=== PATIENT | male | born 1965 | race Caucasian/White ===

== ENCOUNTER 2019-02-16 09:03 | Emergency (ER) | payer BC, OTHER ==
[2019-02-16 09:19] VITALS: BP 126/83; PULSE 95; TEMP 98.7; BMI 32.5
--- NOTE | 2019-02-16 09:30 | PDOC ---
History of Present Illness - General Chief Complaint: Abscess Boil Stated Complaint: WOUND CHECK Time Seen by Provider: 02/16/19 09:19 - History of Present Illness Initial Comments: 02/16/19 11:27 Chief complaint: Abscess History of present illness: I&D of abscess on upper back several days ago, persistent purulent drainage. On Bactrim pending culture results. Prior zoster treated with Valtrex Review of systems: No fever/chills, or other systemic sign of widespread infection Medical history: Type 2 diabetes on oral medication, controlled Social/family history reviewed and noncontributory Physical exam: Alert and oriented well-developed well-nourished no acute distress cooperative Afebrile, vital signs normal Site of abscess on upper back with persistent purulent drainage. Wound is open and draining well. Skin is flat with no fluctuance or other sign of recurrent abscess. Surrounding mild erythema but no significant tenderness to palpation. Impression: Draining abscess, resolving Plan: Results of culture were obtained from urgent care center. Staff aureus was grown which is sensitive to all antibiotics. Cephalexin may penetrate skin and soft tissue better than Bactrim, so antibiotic changed to cephalexin 500 4 times a day with close observation and follow-up by primary physician. Warning signs of spreading infection were discussed with the patient and he is instructed to return to the emergency room if such symptoms develop. Otherwise fully ambulatory and in no pain or other distress and discharge with his to follow-up as directed Past History - Past Medical History Allergies/Adverse Reactions: Allergies Allergy/AdvReac Type Severity Reaction Status Date / Time No Known Allergies Allergy Verified 02/16/19 09:10 Home Medications: Ambulatory Orders Aspirin Coated [Ecotrin -] 81 mg PO HS 02/16/19 Atorvastatin Ca PO HS 02/16/19 Cephalexin Monohydrate [Keflex] 500 mg PO Q6H #30 capsule 02/16/19 Metformin HCl [Glucophage] 1,000 mg PO BID 02/16/19 COPD: No Diabetes: Yes (TYPE II) - Suicide/Smoking/Psychosocial Hx Smoking History: Never smoked Hx Alcohol Use: Yes Drug/Substance Use Hx: No *Physical Exam - Vital Signs Last Vital Signs Temp Pulse Resp BP Pulse Ox 98.7 F 95 H 16 126/83 100 02/16/19 09:04 02/16/19 09:04 02/16/19 09:04 02/16/19 09:04 02/16/19 09:04 *DC/Admit/Observation/Transfer Diagnosis at time of Disposition: Cellulitis Qualifiers: Site of cellulitis: trunk Site of cellulitis of trunk: back Qualified Code(s): L03.312 - Cellulitis of back [any part except buttock] - Discharge Dispostion Disposition: HOME Condition at time of disposition: Stable Decision to Admit order: No - Prescriptions Prescriptions: Cephalexin Monohydrate [Keflex] 500 mg PO Q6H #30 capsule - Referrals Referrals: Marychuy Farfan MD [Primary Care Provider] - 3 days - Patient Instructions Printed Discharge Instructions: DI for Cellulitis -- Adult Additional Instructions: Stop taking the present antibiotic. Begin new antibiotic as prescribed. Return to ER if symptoms worsen, especially if there are fever/chills, body aches, or other signs of widespread involvement of infection. Otherwise follow- up primary physician as directed. - Post Discharge Activity
== END 2019-02-16 10:15 | disposition home or self-care (01) ==
LOC: FER 09:03
DX: Z48.01 Encounter for change or removal of surgical wound dressing (principal); L03.312 Cellulitis of back [any part except buttock and flank]
CPT/HCPCS: 87070; 87186; 87205; 99282-25

== ENCOUNTER 2020-06-08 22:03 | Emergency (ER) | payer BC ==
[2020-06-08 22:11] VITALS: TEMP 98.9; BMI 27.1
--- NOTE | 2020-06-08 22:57 | PDOC ---
History of Present Illness - General Chief Complaint: Suicidal Stated Complaint: INTOX Time Seen by Provider: 06/08/20 22:25 - History of Present Illness Initial Comments: 06/08/20 22:56 54yo male with history of diabetes and alcohol abuse presents with acute alcohol intoxication and suicidal ideation, as well as a fall. Patient states he drank a lot, and fell forward. He hit his head on a glass table and cut his nose. Denies LOC or neck pain. States he wants to kill himself. No plan, no gun, no past attempts, no psych history. As per , he frequently says he wants to kill himself when drunk. PMH/PSH: as above Home Medications Medication Instructions Recorded Aspirin Coated [Ecotrin -] 81 mg PO HS 02/16/19 Atorvastatin Ca PO HS 02/16/19 Metformin HCl [Glucophage] 1,000 mg PO BID 02/16/19 Allergies Allergy/AdvReac Type Severity Reaction Status Date / Time No Known Allergies Allergy Verified 02/16/19 09:10 ROS GENERAL/CONSTITUTIONAL: No fever or chills. No weakness. HEAD, EYES, EARS, NOSE AND THROAT: No change in vision. No ear pain or discharge. No sore throat. CARDIOVASCULAR: No chest pain or shortness of breath RESPIRATORY: No cough, wheezing, or hemoptysis. GASTROINTESTINAL: No nausea, vomiting, diarrhea or constipation. GENITOURINARY: No dysuria, frequency, or change in urination. MUSCULOSKELETAL: No joint or muscle swelling or pain. No neck or back pain. SKIN: No rash NEUROLOGIC: No headache, vertigo, loss of consciousness, or change in strength/sensation. ENDOCRINE: No increased thirst. No abnormal weight change HEMATOLOGIC/LYMPHATIC: No anemia, easy bleeding, or history of blood clots. ALLERGIC/IMMUNOLOGIC: No hives or skin allergy. PE GENERAL: Awake, alert, and fully oriented, intoxicated HEAD: laceration across bridge of nose EYES: PERRLA, EOMI, sclera anicteric, conjunctiva clear ENT: Auricles normal inspection, hearing grossly normal, nares patent, or opharynx clear without exudates. Moist mucosa NECK: Normal ROM, supple, no lymphadenopathy, JVD, or masses LUNGS: No distress, speaks full sentences, clear to auscultation bilaterally HEART: Regular rate and rhythm, normal S1 and S2, no murmurs, rubs or gallops, peripheral pulses normal and equal bilaterally. ABDOMEN: Soft, nontender, normoactive bowel sounds. No guarding, no rebound. No masses EXTREMITIES : Normal inspection, Normal range of motion, no edema. No clubbing or cyanosis. NEUROLOGICAL: Normal speech, no focal sensorimotor deficits SKIN: Warm, Dry, normal turgor, no rashes or lesions noted Vital Signs (72 hours) 06/08/20 06/09/20 22:04 04:04 Temperature 98.9 F Pulse Rate 88 Pulse Rate [ 105 H Left Radial] Respiratory 20 18 Rate Blood Pressure 151/84 Blood Pressure 146/83 [Left Arm] O2 Sat by Pulse 100 98 Oximetry (%) MDM: 54yo male with history of diabetes and alcohol abuse presents with acute alcohol intoxication and suicidal ideation, as well as a fall. Exam notable for laceration to nasal bridge. DDx includes ICH, cervical spine pathology, facial bone fracture. -CBC, CMP, UA, drug screen, tylenol/salicilates/alcohol levels -CT head, c-spine, facial bones -glue to bridge of nose laceration Labs notable for hyperglycemia to 420, ETOH level 262.3. -banana bag 06/09/20 03:38 CT head:The ventricular system is midline and nondilated. The sulcal pattern is normal for the patient's age. There is no bleed, mass, extra-axial fluid collection or mass effect. No skull fracture or skull lesion is identified. The visualized paranasal sinuses and mastoid air cells are clear. CT facial Bones: The intraorbital contents are intact. The sinuses and visualized mastoid air cells are well aerated. There is a fracture of the tip of the nasal bridge. No other fractures are identified. CT cervical spine: There is no fracture, subluxation, prevertebral soft tissue swelling. There is a large herniated disc versus focal ossification of posterior longitudinal ligament at the level of C2-3 which moderately narrows the central canal. The lung apices are clear. IMPRESSION: No acute intracranial pathology. Fracture of the tip of the nasal bridge. No fracture of the cervical spine. Moderate central canal narrowing at C2-3 secondary to a large herniated disc versus focal ossification of the posterior longitudinal ligament. 06/09/20 04:15 Patient is more sober and denies suicidal ideation and commits to safety. His [facility] cloud security architect friend will drive him home. His is home to open the door. 06/09/20 04:27 Past History - Medical History Allergies/Adverse Reactions: Allergies Allergy/AdvReac Type Severity Reaction Status Date / Time No Known Allergies Allergy Verified 02/16/19 09:10 Home Medications: Ambulatory Orders Aspirin Coated [Ecotrin -] 81 mg PO HS 02/16/19 Atorvastatin Ca PO HS 02/16/19 Cephalexin Monohydrate [Keflex] 500 mg PO Q6H #30 capsule 02/16/19 Metformin HCl [Glucophage] 1,000 mg PO BID 02/16/19 COPD: No Diabetes: Yes (TYPE II) - Psycho-Social/Smoking History Smoking History: Current every day smoker Number of Cigarettes Smoked Daily: 12 Information on smoking cessation initiated: No - Substance Abuse Hx (Audit-C & DAST Scrn) How often the patient has a drink containing alcohol: 2-4 times / month Number of drinks the patient has on a typical day: 5 or 6 How often the patient has six or more drinks on one occasion: Daily or almost daily Score: In Men: 4 or > Positive; In Women: 3 or > Positive: 8 Screen Result (Pos requires Nsg. Audit-10AR): Positive In the last yr the pt used illegal drug/Rx for NonMed reason: No Score: Yes response is considered Positive: 0 Screen Result (Positive result requires Nsg. DAST-10): Negative *Physical Exam - Vital Signs Last Vital Signs Temp Pulse Resp BP Pulse Ox 98.9 F 88 20 151/84 100 06/08/20 22:04 06/08/20 22:04 06/08/20 22:04 06/08/20 22:04 06/08/20 22:04 Procedures - Laceration/Wound Repair Nose Wound Length: to 2.5 cm Wound's Depth, Shape: superficial Wound Repaired With: Dermabond ED Treatment Course - LABORATORY CBC & Chemistry Diagram: 06/09/20 00:40 06/09/20 00:40 - RADIOLOGY Radiology Studies Ordered: Category Date Time Status CERVICAL SPINE CT W/O CONTR [CT] Stat CT Scan 06/08/20 22:[address] W/O CONTRAST [CT] Stat CT Scan 06/08/20 22:[address] WITHOUT CONTRAST [CT] Stat CT Scan 06/08/20 22:55 Ordered Discharge - Discharge Information Problems reviewed: Yes Clinical Impression/Diagnosis: Alcohol abuse, Nasal fracture Condition: Stable Disposition: HOME - Follow up/Referral - Patient Discharge Instructions Patient Printed Discharge Instructions: DI for Closed Head Injury Additional Instructions: [facility], [facility] Oral surgeon in [place], [place] Address: [address] [place] [address] [address] [place] [address] Opens 8AM - Post Discharge Activity Work/Back to School Note: My Personal Safety Plan
--- NOTE | 2020-06-09 00:47 | PDOC ---
Documentation entered by Alex Fierro SCRIBE, acting as scribe for Katerina Miller MD. Katerina Miller MD: This documentation has been prepared by the Sri villarreal Angel, SCRIBE, under my direction and personally reviewed by me in its entirety. I confirm that the documentation accurately reflects all work, treatment, procedures, and medical decision making performed by me. Attending Attestation - Resident Resident Name: Seamus Mendenhall - ED Attending Attestation I have performed the following: I have examined & evaluated the patient, The case was reviewed & discussed with the resident, I agree w/resident's findings & plan - HPI HPI: 06/09/20 00:01 The patient is a 54 year old male with a significant past medical history of type 2 diabetes on oral medication and recent cataract surgery who presents to the ED BIBA intoxicated possible fall and struck his nose. The patients called EMS. The patient states he is very depressed but denies any suicidal ideations. 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 He goes on to say he feels like he makes no money and states My life is fd up. The patient is slurring his speech and crying here in the ED. The patient has no complaints and wants to go home. - Physicial Exam PE: 06/08/20 23:49 Abdomen: huge distended belly Extremities: muscle wasting in the upper extremities No flank pain Laceration across bridge of nose and swelling Blood in his mouth but may be from nose laceration - Medical Decision Making 06/09/20 00:00 Pt is arguing with us that he wants to go home. Adamant that he is not suicidal. 06/09/20 00:44 I called and spoke to pt's and she tells me that pt is an alcoholic and that she has been trying to get him in detox. States that she kicked him out of the home and he stayed in a hotel x 3 days and pt is just getting worse. Drunk at home; today fell and was bleeding from his nose. No LOC. is willing t come pick him up if and when he decides to AMA. I explained to her that I want to get labs and CT head and facialbones. 06/09/20 00:46 Pt willing again to get face and head CT FInally agreed to have labs drawn and sent to lab 06/09/20 01:53 Pt's glucose is 420 06/09/20 03:24 Patient Name: BI HAMPTON THIS IS A PRELIMINARY REPORT DATE OF SERVICE: 2020-06-09 01:23:16 IMAGES: [id number] EXAM: CERVICAL SPINE CT W/O CONTR and FACIAL BONES CT W/O CONTRAST and HEAD CT WITHOUT CONTRAST HISTORY: Trauma COMPARISON: None. FINDINGS: CT head:The ventricular system is midline and nondilated. The sulcal pattern is normal for the patient's age. There is no bleed, mass, extra-axial fluid collection or mass effect. No skull fracture or skull lesion is identified. The visualized paranasal sinuses and mastoid air cells are clear. CT facial Bones: The intraorbital contents are intact. The sinuses and visualized mastoid air cells are well aerated. There is a fracture of the tip of the nasal bridge. No other fractures are identified. CT cervical spine: There is no fracture, subluxation, prevertebral soft tissue swelling. There is a large herniated disc versus focal ossification of posterior longitudinal ligament at the level of C2-3 which moderately narrows the central canal. The lung apices are clear. IMPRESSION: No acute intracranial pathology. Fracture of the tip of the nasal bridge. No fracture of the cervical spine. Moderate central canal narrowing at C2-3 secondary to a large herniated disc versus focal ossification of the posterior longitudinal ligament. 06/09/20 03:56 I called pt's . She is getting a family friend to pick pt up and bring him home. SHe is at home to open the door. Discharge - Discharge Information Problems reviewed: Yes Clinical Impression/Diagnosis: Alcohol abuse, Nasal fracture Condition: Stable Disposition: HOME - Admission No - Follow up/Referral - Patient Discharge Instructions Patient Printed Discharge Instructions: DI for Closed Head Injury Additional Instructions: [facility], [facility] Oral surgeon in [place], [place] Address: [address] [place] [address] #[facility], [place] [address] Opens 8AM - Post Discharge Activity Work/Back to School Note: My Personal Safety Plan
[2020-06-09 01:04] LABS: BASO % 0.3 % (0-2.0); EOS % 1.3 % (0-4.5); HEMATOCRIT 43.2 % (35.4-49); LYMPH % 23.8 % (8-40); MCH 33.5 pg (25.7-33.7); MCHC 34.7 g/dl (32.0-35.9); MEAN CELL VOLUME 96.5 fl (80-96); MEAN PLT VOLUME 8.2 fl (7.5-11.1); MONO % 4.1 % (3.8-10.2); NEUT % 70.5 % (42.8-82.8); PLATELET COUNT 133 K/MM3 (134-434); RBC 4.48 M/mm3 (4.00-5.60); RDW 13.1 % (11.9-15.9); WHITE BLOOD COUNT 5.1 K/mm3 (4.0-10.0)
[2020-06-09 01:19] LABS: INR 0.91 (0.83-1.09); PROTHROMBIN TIME (PATIENT) 10.7 SEC (9.7-13.0)
[2020-06-09 01:22] LABS: ACTIVATED PTT 33.4 SECONDS (25.2-36.5)
[2020-06-09 01:28] LABS: ALBUMIN 3.8 g/dl (3.4-5.0); BILIRUBIN,TOTAL 0.5 mg/dL (0.2-1); CALCIUM 8.9 mg/dL (8.5-10.1); CREATININE 0.8 mg/dL (0.55-1.3); POTASSIUM 3.9 mmol/L (3.5-5.1); TOT PROT 7.4 g/dl (6.4-8.2)
[2020-06-09] MEDS ORDERED: FOLIC ACID INJECTION - 1 MG, THIAMINE HCL 100 MG, MULTIVIT INJECTION ADULT 10 ML in SOD... IVPB ONE (01:56)
[2020-06-09 02:03] LABS: EPI CELLS 1 /uL (0-25.1); HYALINE CASTS 0 /uL (0-3.1); URINE APPEARANCE CLEAR; URINE BACTERIA 2 /uL (0-1359); URINE BILIRUBIN NEGATIVE (NEGATIVE); URINE COLOR YELLOW; URINE GLUCOSE (UA) 3+ (NEGATIVE); URINE KETONE 1+ (NEGATIVE); URINE LEUK ESTERASE NEGATIVE (NEGATIVE); URINE NITRITE NEGATIVE (NEGATIVE); URINE PROTEIN 1+ (NEGATIVE); URINE RBC 3 /uL (0-23.9); URINE WBC 1 /uL (0-25.8)
[2020-06-09 02:09] LABS: OPIATES, URI NEGATIVE ng/ml (CUTOFF=300); PHENCYCLIDINE,URINE NEGATIVE ng/ml (CUTOFF=25)
[2020-06-09 02:10] LABS: COCAINE, UR NEGATIVE ng/ml (CUTOFF=300); URINE BARBITURATES NEGATIVE ng/ml (CUTOFF=200); URINE BENZODIAZEPINES NEGATIVE ng/ml (CUTOFF=200)
[2020-06-09 02:15] LABS: METHADONE, UR NEGATIVE ng/ml (CUTOFF=300); URINE AMPHETAMINES NEGATIVE ng/ml (CUTOFF=500)
[2020-06-09] MEDS ORDERED: MAGNESIUM SULF 50% (8.12 MEQ/2 ML-1 GM VIAL) IVPB ONE (03:25)
[2020-06-09] MEDS ORDERED: INSULIN REGULAR HUMAN 100 UNITS/ML *VIAL IVPUSH ONE (03:25)
[2020-06-09 04:05] VITALS: BP 146/83; PULSE 105
--- NOTE | 2020-06-09 21:24 | EKG ---
Test Reason : Blood Pressure : / mmHG Vent. Rate : 095 BPM Atrial Rate : 095 BPM P-R Int : 170 ms QRS Dur : 110 ms QT Int : 386 ms P-R-T Axes : 060 093 258 degrees QTc Int : 485 ms NORMAL SINUS RHYTHM RIGHTWARD AXIS POSSIBLE INFERIOR INFARCT , AGE UNDETERMINED ABNORMAL ECG NO PREVIOUS ECGS AVAILABLE Confirmed by TOM RIGGINS MD ([id number]) on 06/09/2020 9:23:31 PM Referred By: Confirmed By:TOM RIGGINS MD
== END 2020-06-09 04:15 | disposition home or self-care (01) ==
LOC: JER 22:03
PROC: 3E033GC Introduction of Other Therapeutic Substance into Peripheral Vein, Percutaneous Approach (ICD-10-PCS; principal; 2020-06-08)
DX: F10.20 Alcohol dependence, uncomplicated (principal); S02.2XXA Fracture of nasal bones, initial encounter for closed fracture
CPT/HCPCS: 36415; 70450-TC; 70486-TC; 72125-TC; 80053; 80307; 81003; 85025; 85610; 85730; 93005; 93010; 99285-25

== ENCOUNTER 2021-06-12 01:15 | Inpatient (IN) | payer BC ==
[2021-06-12] MEDS ORDERED: PIPERACILLIN/TAZOB 3.375 GM 3.375 GM in DEXTROSE 5%-WATER - 50 ML IVPB ONE (01:31)
[2021-06-12] MEDS ORDERED: PIPERACILLIN/TAZOBACTAM 3.375 GM VIAL IVPB ONE ×2 (02:05→08:52)
[2021-06-12 02:42] LABS: BASO % 0.2 % (0-2.0); EOS % 0.1 % (0-4.5); HEMATOCRIT 29.8 % (35.4-49); HEMOGLOBIN 10.5 GM/dL (11.7-16.9); LYMPH % 4.7 % (8-40); MCH 31.3 pg (25.7-33.7); MCHC 35.3 g/dl (32.0-35.9); MEAN CELL VOLUME 88.7 fl (80-96); MEAN PLT VOLUME 7.7 fl (7.5-11.1); PLATELET COUNT 155 10^3/uL (134-434); RBC 3.36 M/mm3 (4.00-5.60); RDW 13.8 % (11.9-15.9); WHITE BLOOD COUNT 15.5 K/mm3 (4.0-10.0)
[2021-06-12 03:02] LABS: CALCIUM 7.8 mg/dL (8.5-10.1)
[2021-06-12 03:03] LABS: ALBUMIN 2.9 g/dl (3.4-5.0); BLOOD UREA NITROGEN 24.8 mg/dL (7-18)
[2021-06-12 03:06] LABS: CREATININE 1.2 mg/dL (0.55-1.3)
[2021-06-12 03:08] LABS: BILIRUBIN,TOTAL 1.3 mg/dL (0.2-1); TOT PROT 6.7 g/dl (6.4-8.2)
[2021-06-12] MEDS ORDERED: VANCOMYCIN 1 GM in D5W (PRE-DOCKED) 1,000 MG/250 ML IVPB ONE (03:42)
[2021-06-12] MEDS ORDERED: VANCOMYCIN 1,000 MG VIAL (RESTRICTED TO ID ONLY) ONE ×2 (03:45→15:26)
[2021-06-12 07:35] LABS: CALCIUM 7.5 mg/dl (8.5-10); CREATININE 1.1 mg/dl (0.55-1.3)
[2021-06-12 07:39] LABS: HEMATOCRIT 28.1 % (35.4-49); HEMOGLOBIN 9.7 GM/dl (11.7-16.9); MCH 31.8 pg (25.7-33.7); MCHC 34.6 g/dl (32.0-35.9); MEAN PLT VOLUME 7.9 fl (7.5-11.1); PLATELET COUNT 152 10^3/uL (134-434); RBC 3.06 M/mm3 (4.00-5.60); RDW 13.2 % (11.9-15.9); WHITE BLOOD COUNT 12.5 K/mm3 (4.0-10.8)
[2021-06-12 07:41] LABS: ADD RBC MORPHOLOGY YES
[2021-06-12 08:05] LABS: ACTIVATED PTT 28.3 SECONDS (25.2-36.5)
[2021-06-12 08:09] LABS: INR 1.58 (0.82-1.09); PROTHROMBIN TIME (PATIENT) 17.2 SEC (10.2-13.0)
[2021-06-12] MEDS ORDERED: PIPERACILLIN/TAZOB 3.375 GM 3.375 GM in DEXTROSE 5%-WATER - 50 ML IVPB SCH (09:00)
[2021-06-12] MEDS ORDERED: INSULIN (NOVOLOG) ASPART 100 UNITS/ML 10ML VIAL ONE ×2 (09:10→12:13)
[2021-06-12] MEDS: INSULIN SLIDING SCALE (NOVOLOG) 1 VIAL SQ SCH ×3 (09:16→16:30)
[2021-06-12] MEDS ORDERED: ENOXAPARIN NA (PORCINE) 40 MG/0.4 ML DISP.SYRIN SQ SCH (10:00)
[2021-06-12] MEDS ORDERED: CLINDAMYCIN PHOSPHATE 300 MG/2 ML VIAL ONE (11:52)
[2021-06-12] MEDS ORDERED: CLINDAMYCIN PHOSPHATE 600 MG/4 ML VIAL ONE (11:52)
[2021-06-12] MEDS: CLINDAMYCIN 900 MG PREMIX IVPB 900 MG/50 ML BAG IVPB SCH ×2 (12:28→19:28)
[2021-06-12] MEDS ORDERED: ACETAMINOPHEN 1000 MG/100 ML VIAL (NON FORMULARY) IVPB PRN ×2 (14:13→22:27)
[2021-06-12] MEDS ORDERED: SODIUM CHLORIDE IV ONE (14:14)
[2021-06-12] MEDS ORDERED: SODIUM CHLORIDE 1,000 ML IV SCH (14:15)
[2021-06-12] MEDS ORDERED: ACETAMINOPHEN INJECTION 100 ML IVPB ONE (14:23)
[2021-06-12 14:51] LABS: BASO % 0.2 % (0-2.0); EOS % 0.5 % (0-4.5); HEMATOCRIT 32.2 % (35.4-49); HEMOGLOBIN 10.7 GM/dl (11.7-16.9); LYMPH % 5.3 % (8-40); MCH 30.9 pg (25.7-33.7); MCHC 33.3 g/dl (32.0-35.9); MEAN CELL VOLUME 92.6 fl (80-96); MEAN PLT VOLUME 7.4 fl (7.5-11.1); MONO % 4.4 % (3.8-10.2); NEUT % 89.6 % (42.8-82.8); PLATELET COUNT 175 10^3/uL (134-434); RBC 3.48 M/mm3 (4.00-5.60); RDW 13.2 % (11.9-15.9); WHITE BLOOD COUNT 11.4 K/mm3 (4.0-10.8)
[2021-06-12] MEDS ORDERED: VANCOMYCIN 1 GRAM (PRE-DOCKED) 1,000 MG/250 ML BAG IVPB SCH ×2 (15:00)
[2021-06-12] MEDS ORDERED: LIDOCAINE HCL 1%, 10 MG/ML (20ML VIAL) ONE (15:26)
[2021-06-12] MEDS ORDERED: BUPIVACAINE HCL/PF 0.5% (5MG/ML) 10 ML VIAL ONE (15:26)
[2021-06-12] MEDS ORDERED: VANCOMYCIN/WATER 1,250 MG/250 ML BAG IVPB SCH (16:00)
[2021-06-12] MEDS ORDERED: PIPERACILLIN/TAZOB 4.5 GM 4.5 GM in SODIUM CHLORIDE 100 ML IVPB SCH (18:00)
[2021-06-12] MEDS ORDERED: ONDANSETRON 4 MG/2 ML VIAL IVPUSH PRN ×2 (19:59→22:27)
[2021-06-12] MEDS ORDERED: PROPOFOL 20 ML ONE ×2 (20:48)
[2021-06-12] MEDS ORDERED: MIDAZOLAM HCL 2 MG/2 ML SINGLE DOSE VIAL ONE ×2 (20:49)
[2021-06-12] MEDS ORDERED: BACITRACIN 50,000 UNITS VIAL TP ONE (21:38)
[2021-06-12] MEDS ORDERED: ASPIRIN COATED 81 MG TABLET.EC PO SCH (22:00)
[2021-06-12] MEDS ORDERED: ATORVASTATIN CA 20 MG TABLET (FP) PO SCH (22:00)
[2021-06-12] MEDS ORDERED: THROMBIN (BOVINE) 5,000 UNIT VIAL TP ONE (22:04)
[2021-06-12 22:43] LABS: BASO % 0.4 % (0-2.0); EOS % 0.6 % (0-4.5); HEMATOCRIT 28.3 % (35.4-49); HEMOGLOBIN 10.1 GM/dL (11.7-16.9); MCH 32.1 pg (25.7-33.7); MCHC 35.9 g/dl (32.0-35.9); MEAN CELL VOLUME 89.3 fl (80-96); MEAN PLT VOLUME 7.5 fl (7.5-11.1); MONO % 5.9 % (3.8-10.2); NEUT % 88.1 % (42.8-82.8); PLATELET COUNT 151 10^3/uL (134-434); RBC 3.16 M/mm3 (4.00-5.60); RDW 13.8 % (11.9-15.9); WHITE BLOOD COUNT 9.6 K/mm3 (4.0-10.0)
[2021-06-12] MEDS: SODIUM CHLORIDE 1,000 ML IV SCH (22:58)
[2021-06-13 00:11] VITALS: BMI 36.3
[2021-06-13] MEDS ORDERED: PIPERACILLIN/TAZOBACTAM 4.5 GM VIAL IVPB ONE ×3 (01:01→16:26)
[2021-06-13] MEDS ORDERED: SODIUM CHLORIDE 100 ML IVPB ONE ×3 (01:02→16:27)
[2021-06-13] MEDS: PIPERACILLIN/TAZOB 4.5 GM 4.5 GM in SODIUM CHLORIDE 100 ML IVPB SCH ×3 (01:17→17:12)
[2021-06-13] MEDS: CLINDAMYCIN 900 MG PREMIX IVPB 900 MG/50 ML BAG IVPB SCH ×3 (01:58→17:12)
[2021-06-13] MEDS ORDERED: PT OWN MED DRAWER 7, Y5N ONE ×2 (03:03→09:04)
[2021-06-13] MEDS: VANCOMYCIN 1 GRAM (PRE-DOCKED) 1,000 MG/250 ML BAG IVPB SCH ×2 (03:24→14:32)
[2021-06-13] MEDS: INSULIN SLIDING SCALE (NOVOLOG) 1 VIAL SQ SCH ×4 (06:42→21:28)
[2021-06-13] MEDS: SODIUM CHLORIDE 1,000 ML IV SCH (10:20)
[2021-06-13] MEDS: oxyCODONE HCL 5 MG TABLET PO PRN (11:21)
[2021-06-13 11:52] LABS: BASO % 0.3 % (0-2.0); EOS % 0.8 % (0-4.5); HEMATOCRIT 24.1 % (35.4-49); HEMOGLOBIN 8.7 GM/dL (11.7-16.9); LYMPH % 8.4 % (8-40); MCH 32.3 pg (25.7-33.7); MCHC 36.4 g/dl (32.0-35.9); MEAN CELL VOLUME 88.9 fl (80-96); MEAN PLT VOLUME 7.6 fl (7.5-11.1); MONO % 6.1 % (3.8-10.2); NEUT % 84.4 % (42.8-82.8); PLATELET COUNT 154 10^3/uL (134-434); RBC 2.71 M/mm3 (4.00-5.60); WHITE BLOOD COUNT 7.3 K/mm3 (4.0-10.0)
[2021-06-13 12:15] LABS: CHLORIDE 106 mmol/L (98-107); SODIUM 139 mmol/L (136-145)
[2021-06-13 12:18] LABS: ANION GAP 5 MMOL/L (8-16); CO2 28 mmol/L (21-32); GLUCOSE,RANDOM 157 mg/dL (74-106)
[2021-06-13 12:21] LABS: CREATININE 0.7 mg/dL (0.55-1.3); SGOT/AST 18 U/L (15-37); SGPT/ALT 19 U/L (13-61)
[2021-06-13 12:22] LABS: BILIRUBIN,TOTAL 0.8 mg/dL (0.2-1)
[2021-06-13 12:23] LABS: TOT PROT 5.3 g/dl (6.4-8.2)
[2021-06-13 12:24] LABS: ALK PHOS 80 U/L (45-117)
[2021-06-13 12:25] LABS: ALBUMIN 1.9 g/dl (3.4-5.0); CALCIUM 6.8 mg/dL (8.5-10.1)
[2021-06-13] MEDS ORDERED: POTASSIUM CHLORIDE TABS 20 MEQ TABLET.ER (FP) PO ONE (15:00)
[2021-06-13] MEDS: ATORVASTATIN CA 20 MG TABLET (FP) PO SCH (21:28)
[2021-06-13] MEDS: POTASSIUM CHLORIDE TABS 20 MEQ TABLET.ER (FP) PO SCH (21:28)
[2021-06-14] MEDS ORDERED: PIPERACILLIN/TAZOBACTAM 4.5 GM VIAL IVPB ONE ×4 (00:57→17:44)
[2021-06-14] MEDS ORDERED: SODIUM CHLORIDE 100 ML IVPB ONE ×4 (00:57→17:44)
[2021-06-14] MEDS: CLINDAMYCIN 900 MG PREMIX IVPB 900 MG/50 ML BAG IVPB SCH ×3 (01:15→16:54)
[2021-06-14] MEDS: SODIUM CHLORIDE 1,000 ML IV SCH ×2 (01:40→09:06)
[2021-06-14] MEDS: PIPERACILLIN/TAZOB 4.5 GM 4.5 GM in SODIUM CHLORIDE 100 ML IVPB SCH ×3 (01:43→17:53)
[2021-06-14] MEDS: VANCOMYCIN 1 GRAM (PRE-DOCKED) 1,000 MG/250 ML BAG IVPB SCH (04:00)
[2021-06-14] MEDS: oxyCODONE HCL 5 MG TABLET PO PRN ×4 (04:30→23:50)
[2021-06-14] MEDS: VANCOMYCIN 1,000 MG in SODIUM CHLORIDE 1,000 MG/250 ML INFUS.BAG IVPB SCH ×2 (05:29→15:25)
[2021-06-14] MEDS: INSULIN SLIDING SCALE (NOVOLOG) 1 VIAL SQ SCH ×4 (06:48→21:46)
[2021-06-14] MEDS: ENOXAPARIN NA (PORCINE) 40 MG/0.4 ML DISP.SYRIN SQ SCH (09:05)
[2021-06-14] MEDS: POTASSIUM CHLORIDE TABS 20 MEQ TABLET.ER (FP) PO SCH ×2 (09:06→21:46)
[2021-06-14] MEDS ORDERED: PT OWN MED DRAWER 7, Y5N ONE (14:59)
[2021-06-14] MEDS ORDERED: INSULIN (NOVOLOG) ASPART 100 UNITS/ML 10ML VIAL ONE (20:15)
[2021-06-14] MEDS: ATORVASTATIN CA 20 MG TABLET (FP) PO SCH (21:45)
[2021-06-15] MEDS ORDERED: SODIUM CHLORIDE 100 ML IVPB ONE ×3 (00:35→18:11)
[2021-06-15] MEDS ORDERED: PIPERACILLIN/TAZOBACTAM 4.5 GM VIAL IVPB ONE ×3 (00:35→18:11)
[2021-06-15] MEDS ORDERED: PT OWN MED DRAWER 7, Y5N ONE ×2 (00:54→16:54)
[2021-06-15] MEDS: CLINDAMYCIN 900 MG PREMIX IVPB 900 MG/50 ML BAG IVPB SCH ×4 (01:30→17:35)
[2021-06-15] MEDS: PIPERACILLIN/TAZOB 4.5 GM 4.5 GM in SODIUM CHLORIDE 100 ML IVPB SCH ×3 (02:47→18:19)
[2021-06-15] MEDS: VANCOMYCIN 1,000 MG in SODIUM CHLORIDE 1,000 MG/250 ML INFUS.BAG IVPB SCH ×3 (03:32→17:38)
[2021-06-15] MEDS: oxyCODONE HCL 5 MG TABLET PO PRN ×3 (06:58→18:18)
[2021-06-15] MEDS: INSULIN SLIDING SCALE (NOVOLOG) 1 VIAL SQ SCH ×5 (06:58→22:11)
[2021-06-15] MEDS: ENOXAPARIN NA (PORCINE) 40 MG/0.4 ML DISP.SYRIN SQ SCH ×2 (07:37→09:54)
[2021-06-15] MEDS: PIPERACILLIN/TAZOB 3.375 GM 3.375 GM in DEXTROSE 5%-WATER - 50 ML IVPB SCH (07:38)
[2021-06-15 09:00] LABS: BASO % 0.4 % (0-2.0); EOS % 2.9 % (0-4.5); HEMATOCRIT 25.6 % (35.4-49); HEMOGLOBIN 9.2 GM/dL (11.7-16.9); LYMPH % 13.9 % (8-40); MCH 32.2 pg (25.7-33.7); MCHC 35.9 g/dl (32.0-35.9); MEAN CELL VOLUME 89.6 fl (80-96); MEAN PLT VOLUME 7.8 fl (7.5-11.1); MONO % 6.1 % (3.8-10.2); NEUT % 76.7 % (42.8-82.8); PLATELET COUNT 198 10^3/uL (134-434); RBC 2.86 M/mm3 (4.00-5.60); RDW 13.6 % (11.9-15.9)
[2021-06-15 09:30] LABS: ALBUMIN 1.9 g/dl (3.4-5.0); CALCIUM 7.5 mg/dL (8.5-10.1)
[2021-06-15 09:31] LABS: BLOOD UREA NITROGEN 6.7 mg/dL (7-18)
[2021-06-15 09:34] LABS: CREATININE 0.6 mg/dL (0.55-1.3); PHOSPHOROUS 2.4 mg/dL (2.5-4.9)
[2021-06-15 09:35] LABS: BILIRUBIN,TOTAL 0.9 mg/dL (0.2-1); TOT PROT 5.4 g/dl (6.4-8.2)
[2021-06-15] MEDS ORDERED: INSULIN (NOVOLOG) ASPART 100 UNITS/ML 10ML VIAL ONE (11:10)
[2021-06-15 11:49] LABS: ANISOCYTOSIS 1+; MACROCYTOSIS 0; PLATELET ESTIMATE NORMAL; TEAR DROP CELLS 1+
[2021-06-15] MEDS: ATORVASTATIN CA 20 MG TABLET (FP) PO SCH (22:07)
[2021-06-16] MEDS: oxyCODONE HCL 5 MG TABLET PO PRN ×4 (00:49→21:37)
[2021-06-16] MEDS: CLINDAMYCIN 900 MG PREMIX IVPB 900 MG/50 ML BAG IVPB SCH ×3 (01:01→17:46)
[2021-06-16] MEDS ORDERED: PIPERACILLIN/TAZOBACTAM 4.5 GM VIAL IVPB ONE ×4 (03:26→19:38)
[2021-06-16] MEDS ORDERED: SODIUM CHLORIDE 100 ML IVPB ONE ×3 (03:26→19:38)
[2021-06-16] MEDS: PIPERACILLIN/TAZOB 4.5 GM 4.5 GM in SODIUM CHLORIDE 100 ML IVPB SCH ×3 (03:26→19:40)
[2021-06-16] MEDS: INSULIN SLIDING SCALE (NOVOLOG) 1 VIAL SQ SCH ×4 (06:03→21:43)
[2021-06-16 09:03] LABS: HEMATOCRIT 27.7 % (35.4-49); HEMOGLOBIN 9.9 GM/dL (11.7-16.9); MCH 31.8 pg (25.7-33.7); MCHC 35.9 g/dl (32.0-35.9); MEAN CELL VOLUME 88.5 fl (80-96); MEAN PLT VOLUME 7.4 fl (7.5-11.1); PLATELET COUNT 225 10^3/uL (134-434); RBC 3.13 M/mm3 (4.00-5.60); RDW 13.4 % (11.9-15.9); WHITE BLOOD COUNT 5.5 K/mm3 (4.0-10.0)
[2021-06-16 09:24] LABS: BLOOD UREA NITROGEN 5.8 mg/dL (7-18); CALCIUM 7.8 mg/dL (8.5-10.1)
[2021-06-16 09:27] LABS: CREATININE 0.7 mg/dL (0.55-1.3)
[2021-06-16] MEDS: ENOXAPARIN NA (PORCINE) 40 MG/0.4 ML DISP.SYRIN SQ SCH (10:45)
[2021-06-16] MEDS ORDERED: INSULIN (NOVOLOG) ASPART 100 UNITS/ML 10ML VIAL ONE (11:49)
[2021-06-16] MEDS ORDERED: amLODIPine BESYLATE 2.5 MG TABLET (FP) PO ONE (18:53)
[2021-06-16] MEDS: ATORVASTATIN CA 20 MG TABLET (FP) PO SCH (21:37)
[2021-06-17] MEDS: CLINDAMYCIN 900 MG PREMIX IVPB 900 MG/50 ML BAG IVPB SCH ×3 (01:08→18:41)
[2021-06-17] MEDS ORDERED: SODIUM CHLORIDE 100 ML IVPB ONE ×3 (03:08→16:59)
[2021-06-17] MEDS ORDERED: PIPERACILLIN/TAZOBACTAM 4.5 GM VIAL IVPB ONE ×3 (03:08→16:59)
[2021-06-17] MEDS: PIPERACILLIN/TAZOB 4.5 GM 4.5 GM in SODIUM CHLORIDE 100 ML IVPB SCH ×3 (03:10→17:30)
[2021-06-17] MEDS: INSULIN SLIDING SCALE (NOVOLOG) 1 VIAL SQ SCH ×4 (06:00→22:40)
[2021-06-17] MEDS: oxyCODONE HCL 5 MG TABLET PO PRN ×2 (09:31→22:37)
[2021-06-17] MEDS ORDERED: amLODIPine BESYLATE 5 MG TABLET (FP) PO SCH (10:00)
[2021-06-17 12:06] LABS: HEMATOCRIT 30.9 % (35.4-49); HEMOGLOBIN 10.9 GM/dL (11.7-16.9); MCHC 35.4 g/dl (32.0-35.9); MEAN CELL VOLUME 87.6 fl (80-96); MEAN PLT VOLUME 7.3 fl (7.5-11.1); PLATELET COUNT 243 10^3/uL (134-434); RBC 3.52 M/mm3 (4.00-5.60); RDW 13.9 % (11.9-15.9); WHITE BLOOD COUNT 6.5 K/mm3 (4.0-10.0)
[2021-06-17 12:10] LABS: INR 1.28 (0.83-1.09); PROTHROMBIN TIME (PATIENT) 15.4 SEC (9.7-13.0)
[2021-06-17 12:19] LABS: ALBUMIN 2.1 g/dl (3.4-5.0); BLOOD UREA NITROGEN 5.7 mg/dL (7-18); CALCIUM 7.9 mg/dL (8.5-10.1)
[2021-06-17 12:22] LABS: CREATININE 0.7 mg/dL (0.55-1.3)
[2021-06-17 12:23] LABS: BILIRUBIN,TOTAL 0.6 mg/dL (0.2-1)
[2021-06-17] MEDS ORDERED: INSULIN (NOVOLOG) ASPART 100 UNITS/ML 10ML VIAL ONE (12:44)
[2021-06-17 15:15] LABS: PLATELET ESTIMATE NORMAL
[2021-06-17] MEDS ORDERED: POTASSIUM CHLORIDE TABS 20 MEQ TABLET.ER (FP) PO ONE (15:31)
[2021-06-17] MEDS: ATORVASTATIN CA 20 MG TABLET (FP) PO SCH (22:37)
[2021-06-18] MEDS: CLINDAMYCIN 900 MG PREMIX IVPB 900 MG/50 ML BAG IVPB SCH ×3 (02:03→17:10)
[2021-06-18] MEDS ORDERED: PIPERACILLIN/TAZOBACTAM 4.5 GM VIAL IVPB ONE ×3 (02:41→16:49)
[2021-06-18] MEDS ORDERED: SODIUM CHLORIDE 100 ML IVPB ONE ×3 (02:42→16:49)
[2021-06-18] MEDS: PIPERACILLIN/TAZOB 4.5 GM 4.5 GM in SODIUM CHLORIDE 100 ML IVPB SCH ×3 (02:45→17:36)
[2021-06-18] MEDS ORDERED: DEXMEDETOMIDINE HCL 200 MCG/2 ML IVPB ONE (06:54)
[2021-06-18] MEDS ORDERED: ACETAMINOPHEN INJECTION 100 ML IVPB ONE (06:55)
[2021-06-18] MEDS: INSULIN SLIDING SCALE (NOVOLOG) 1 VIAL SQ SCH ×4 (07:06→23:15)
[2021-06-18] MEDS ORDERED: SUCCINYLCHOLINE CHLORIDE 200 MG/10 ML SYRINGE ONE (07:07)
[2021-06-18] MEDS ORDERED: PROPOFOL 20 ML ONE ×2 (07:08)
[2021-06-18] MEDS ORDERED: MIDAZOLAM HCL 2 MG/2 ML SINGLE DOSE VIAL ONE (07:08)
[2021-06-18] MEDS ORDERED: KETAMINE HCL 200 MG/20 ML VIAL ONE (07:09)
[2021-06-18] MEDS ORDERED: VANCOMYCIN 1,000 MG VIAL (RESTRICTED TO ID ONLY) ONE (07:18)
[2021-06-18] MEDS ORDERED: LIDOCAINE HCL 1%, 10 MG/ML (20ML VIAL) ONE (07:24)
[2021-06-18] MEDS ORDERED: BUPIVACAINE HCL/PF 0.5% (5MG/ML) 10 ML VIAL ONE (07:25)
[2021-06-18] MEDS ORDERED: THROMBIN (BOVINE) 5,000 UNIT VIAL TP ONE (08:12)
[2021-06-18] MEDS ORDERED: BUPIVACAINE HCL/PF 0.5% (5 MG/ML) 30 ML VIAL IJ ONE (08:15)
[2021-06-18] MEDS ORDERED: LIDOCAINE HCL 1%, 10 MG/ML (20ML VIAL) PNB ONE (08:15)
[2021-06-18] MEDS ORDERED: BACITRACIN 50,000 UNITS VIAL TP ONE (08:36)
[2021-06-18] MEDS ORDERED: amLODIPine BESYLATE 5 MG TABLET (FP) PO SCH (10:30)
[2021-06-18 11:16] LABS: HEMATOCRIT 27.6 % (35.4-49); HEMOGLOBIN 9.8 GM/dL (11.7-16.9); MCH 31.3 pg (25.7-33.7); MCHC 35.4 g/dl (32.0-35.9); MEAN CELL VOLUME 88.5 fl (80-96); MEAN PLT VOLUME 7.4 fl (7.5-11.1); PLATELET COUNT 234 10^3/uL (134-434); RBC 3.12 M/mm3 (4.00-5.60); RDW 13.6 % (11.9-15.9); WHITE BLOOD COUNT 6.8 K/mm3 (4.0-10.0)
[2021-06-18 12:57] LABS: ANISOCYTOSIS 0; MACROCYTOSIS 0; PLATELET ESTIMATE NORMAL
[2021-06-18] MEDS: oxyCODONE HCL 5 MG TABLET PO PRN ×2 (18:37→23:15)
[2021-06-18] MEDS: ATORVASTATIN CA 20 MG TABLET (FP) PO SCH (23:05)
[2021-06-19] MEDS: CLINDAMYCIN 900 MG PREMIX IVPB 900 MG/50 ML BAG IVPB SCH ×3 (02:14→18:08)
[2021-06-19] MEDS ORDERED: PIPERACILLIN/TAZOBACTAM 4.5 GM VIAL IVPB ONE ×3 (02:44→17:13)
[2021-06-19] MEDS ORDERED: SODIUM CHLORIDE 100 ML IVPB ONE ×3 (02:45→17:13)
[2021-06-19] MEDS: PIPERACILLIN/TAZOB 4.5 GM 4.5 GM in SODIUM CHLORIDE 100 ML IVPB SCH ×3 (02:47→17:15)
[2021-06-19] MEDS: INSULIN SLIDING SCALE (NOVOLOG) 1 VIAL SQ SCH ×4 (06:55→21:40)
[2021-06-19] MEDS ORDERED: PT OWN MED DRAWER 7, Y5N ONE (09:41)
[2021-06-19] MEDS: LISINOPRIL 20 MG TABLET PO SCH (09:56)
[2021-06-19 10:23] LABS: BASO % 0.6 % (0-2.0); HEMATOCRIT 30.7 % (35.4-49); HEMOGLOBIN 10.7 GM/dL (11.7-16.9); LYMPH % 19.1 % (8-40); MCH 31.1 pg (25.7-33.7); MCHC 34.9 g/dl (32.0-35.9); MEAN PLT VOLUME 7.6 fl (7.5-11.1); MONO % 3.8 % (3.8-10.2); NEUT % 73.5 % (42.8-82.8); PLATELET COUNT 254 10^3/uL (134-434); RBC 3.44 M/mm3 (4.00-5.60); RDW 13.9 % (11.9-15.9); WHITE BLOOD COUNT 6.3 K/mm3 (4.0-10.0)
[2021-06-19] MEDS: oxyCODONE HCL 5 MG TABLET PO PRN ×2 (10:26→18:45)
[2021-06-19 10:44] LABS: ALBUMIN 2.4 g/dl (3.4-5.0)
[2021-06-19 10:45] LABS: BLOOD UREA NITROGEN 7.3 mg/dL (7-18); CALCIUM 8.2 mg/dL (8.5-10.1)
[2021-06-19 10:49] LABS: CREATININE 0.8 mg/dL (0.55-1.3)
[2021-06-19 10:50] LABS: BILIRUBIN,TOTAL 0.5 mg/dL (0.2-1); TOT PROT 6.4 g/dl (6.4-8.2)
[2021-06-19] MEDS: ATORVASTATIN CA 20 MG TABLET (FP) PO SCH (21:04)
[2021-06-20] MEDS ORDERED: PIPERACILLIN/TAZOBACTAM 4.5 GM VIAL IVPB ONE ×3 (00:53→16:56)
[2021-06-20] MEDS ORDERED: SODIUM CHLORIDE 100 ML IVPB ONE ×3 (00:53→16:57)
[2021-06-20] MEDS: PIPERACILLIN/TAZOB 4.5 GM 4.5 GM in SODIUM CHLORIDE 100 ML IVPB SCH ×3 (01:03→17:00)
[2021-06-20] MEDS: CLINDAMYCIN 900 MG PREMIX IVPB 900 MG/50 ML BAG IVPB SCH ×2 (01:56→09:01)
[2021-06-20] MEDS ORDERED: INSULIN (NOVOLOG) ASPART 100 UNITS/ML 10ML VIAL ONE ×2 (05:49→10:59)
[2021-06-20] MEDS: INSULIN SLIDING SCALE (NOVOLOG) 1 VIAL SQ SCH ×4 (06:07→21:09)
[2021-06-20] MEDS: ENOXAPARIN NA (PORCINE) 40 MG/0.4 ML DISP.SYRIN SQ SCH (09:01)
[2021-06-20] MEDS: LISINOPRIL 20 MG TABLET PO SCH (09:02)
[2021-06-20] MEDS: oxyCODONE HCL 5 MG TABLET PO PRN ×2 (09:23→20:26)
[2021-06-20] MEDS ORDERED: DOCUSATE SODIUM 100 MG CAPSULE (FP) PO PRN (14:54)
[2021-06-20] MEDS: POLYETHYLENE GLYCOL (HEALTHYLAX) 3350 17 GM PACKET PO SCH (15:46)
[2021-06-20] MEDS: ATORVASTATIN CA 20 MG TABLET (FP) PO SCH (21:09)
[2021-06-21] MEDS ORDERED: PIPERACILLIN/TAZOBACTAM 4.5 GM VIAL IVPB ONE ×3 (01:18→17:03)
[2021-06-21] MEDS ORDERED: SODIUM CHLORIDE 100 ML IVPB ONE ×3 (01:18→17:03)
[2021-06-21] MEDS: PIPERACILLIN/TAZOB 4.5 GM 4.5 GM in SODIUM CHLORIDE 100 ML IVPB SCH ×3 (01:24→17:06)
[2021-06-21] MEDS ORDERED: INSULIN (NOVOLOG) ASPART 100 UNITS/ML 10ML VIAL ONE ×2 (05:45→12:26)
[2021-06-21] MEDS: INSULIN SLIDING SCALE (NOVOLOG) 1 VIAL SQ SCH ×4 (06:37→21:38)
[2021-06-21 08:29] LABS: BASO % 0.8 % (0-2.0); EOS % 3.4 % (0-4.5); HEMATOCRIT 28.3 % (35.4-49); LYMPH % 22.9 % (8-40); MCHC 35.4 g/dl (32.0-35.9); MEAN CELL VOLUME 87.5 fl (80-96); MEAN PLT VOLUME 7.3 fl (7.5-11.1); MONO % 4.1 % (3.8-10.2); NEUT % 68.8 % (42.8-82.8); PLATELET COUNT 228 10^3/uL (134-434); RBC 3.23 M/mm3 (4.00-5.60); RDW 13.4 % (11.9-15.9); WHITE BLOOD COUNT 5.2 K/mm3 (4.0-10.0)
[2021-06-21 09:00] LABS: BLOOD UREA NITROGEN 7.8 mg/dL (7-18)
[2021-06-21 09:03] LABS: CALCIUM 7.8 mg/dL (8.5-10.1); CREATININE 0.7 mg/dL (0.55-1.3)
[2021-06-21] MEDS: ENOXAPARIN NA (PORCINE) 40 MG/0.4 ML DISP.SYRIN SQ SCH (11:29)
[2021-06-21] MEDS: MULTIVITAMINS THER W-MINERALS COMBO TABLET (FP) PO SCH (11:29)
[2021-06-21] MEDS: LISINOPRIL 20 MG TABLET PO SCH (11:29)
[2021-06-21] MEDS: POLYETHYLENE GLYCOL (HEALTHYLAX) 3350 17 GM PACKET PO SCH (11:37)
[2021-06-21] MEDS: oxyCODONE HCL 5 MG TABLET PO PRN ×3 (12:31→21:35)
[2021-06-21] MEDS ORDERED: LISINOPRIL 20 MG TABLET PO ONE (16:42)
[2021-06-21] MEDS ORDERED: LISINOPRIL 20 MG TABLET PO SCH (16:43)
[2021-06-21] MEDS: ATORVASTATIN CA 20 MG TABLET (FP) PO SCH (21:29)
[2021-06-22] MEDS ORDERED: PIPERACILLIN/TAZOBACTAM 4.5 GM VIAL IVPB ONE ×3 (01:57→17:38)
[2021-06-22] MEDS ORDERED: SODIUM CHLORIDE 100 ML IVPB ONE ×3 (01:57→17:38)
[2021-06-22] MEDS: PIPERACILLIN/TAZOB 4.5 GM 4.5 GM in SODIUM CHLORIDE 100 ML IVPB SCH ×3 (01:58→17:40)
[2021-06-22] MEDS: INSULIN SLIDING SCALE (NOVOLOG) 1 VIAL SQ SCH ×4 (06:33→21:39)
[2021-06-22] MEDS: LISINOPRIL 20 MG TABLET PO SCH (10:13)
[2021-06-22] MEDS: MULTIVITAMINS THER W-MINERALS COMBO TABLET (FP) PO SCH (10:13)
[2021-06-22] MEDS: ENOXAPARIN NA (PORCINE) 40 MG/0.4 ML DISP.SYRIN SQ SCH (10:13)
[2021-06-22 10:20] LABS: BASO % 0.6 % (0-2.0); EOS % 2.4 % (0-4.5); HEMATOCRIT 29.4 % (35.4-49); HEMOGLOBIN 10.4 GM/dL (11.7-16.9); LYMPH % 22.6 % (8-40); MCH 31.3 pg (25.7-33.7); MCHC 35.5 g/dl (32.0-35.9); MEAN CELL VOLUME 88.2 fl (80-96); MEAN PLT VOLUME 7.5 fl (7.5-11.1); MONO % 4.5 % (3.8-10.2); NEUT % 69.9 % (42.8-82.8); PLATELET COUNT 254 10^3/uL (134-434); RBC 3.33 M/mm3 (4.00-5.60); RDW 13.7 % (11.9-15.9); WHITE BLOOD COUNT 5.3 K/mm3 (4.0-10.0)
[2021-06-22] MEDS: POLYETHYLENE GLYCOL (HEALTHYLAX) 3350 17 GM PACKET PO SCH (10:21)
[2021-06-22 10:48] LABS: BLOOD UREA NITROGEN 8.6 mg/dL (7-18); CALCIUM 8.1 mg/dL (8.5-10.1)
[2021-06-22 10:49] LABS: MAGNESIUM 2.1 mg/dL (1.8-2.4)
[2021-06-22 10:52] LABS: CREATININE 0.7 mg/dL (0.55-1.3); PHOSPHOROUS 3.1 mg/dL (2.5-4.9)
[2021-06-22] MEDS ORDERED: amLODIPine BESYLATE 5 MG TABLET (FP) PO ONE (17:52)
[2021-06-22] MEDS: oxyCODONE HCL 5 MG TABLET PO PRN ×2 (18:38→21:34)
[2021-06-22] MEDS: ATORVASTATIN CA 20 MG TABLET (FP) PO SCH (21:35)
[2021-06-23] MEDS ORDERED: PIPERACILLIN/TAZOBACTAM 4.5 GM VIAL IVPB ONE ×3 (01:20→18:35)
[2021-06-23] MEDS ORDERED: SODIUM CHLORIDE 100 ML IVPB ONE ×3 (01:20→18:35)
[2021-06-23] MEDS: PIPERACILLIN/TAZOB 4.5 GM 4.5 GM in SODIUM CHLORIDE 100 ML IVPB SCH ×3 (01:22→18:42)
[2021-06-23] MEDS: INSULIN SLIDING SCALE (NOVOLOG) 1 VIAL SQ SCH ×4 (06:08→21:41)
[2021-06-23 09:28] LABS: BASO % 0.7 % (0-2.0); EOS % 2.6 % (0-4.5); LYMPH % 21.9 % (8-40); MCH 31.2 pg (25.7-33.7); MCHC 35.6 g/dl (32.0-35.9); MEAN CELL VOLUME 87.7 fl (80-96); MEAN PLT VOLUME 7.5 fl (7.5-11.1); MONO % 5.1 % (3.8-10.2); NEUT % 69.7 % (42.8-82.8); PLATELET COUNT 244 10^3/uL (134-434); RBC 3.54 M/mm3 (4.00-5.60); RDW 13.6 % (11.9-15.9); WHITE BLOOD COUNT 5.1 K/mm3 (4.0-10.0)
[2021-06-23 09:54] LABS: CALCIUM 8.5 mg/dL (8.5-10.1)
[2021-06-23 09:56] LABS: BLOOD UREA NITROGEN 8.2 mg/dL (7-18)
[2021-06-23 09:59] LABS: CREATININE 0.8 mg/dL (0.55-1.3)
[2021-06-23] MEDS: oxyCODONE HCL 5 MG TABLET PO PRN ×2 (10:05→21:41)
[2021-06-23] MEDS: ENOXAPARIN NA (PORCINE) 40 MG/0.4 ML DISP.SYRIN SQ SCH (10:05)
[2021-06-23] MEDS: POLYETHYLENE GLYCOL (HEALTHYLAX) 3350 17 GM PACKET PO SCH (10:06)
[2021-06-23] MEDS: MULTIVITAMINS THER W-MINERALS COMBO TABLET (FP) PO SCH (10:06)
[2021-06-23] MEDS: LISINOPRIL 20 MG TABLET PO SCH (10:06)
[2021-06-23] MEDS: ATORVASTATIN CA 20 MG TABLET (FP) PO SCH (21:41)
[2021-06-24] MEDS ORDERED: SODIUM CHLORIDE 100 ML IVPB ONE ×3 (00:28→17:50)
[2021-06-24] MEDS ORDERED: PIPERACILLIN/TAZOBACTAM 4.5 GM VIAL IVPB ONE ×3 (00:28→17:50)
[2021-06-24] MEDS: PIPERACILLIN/TAZOB 4.5 GM 4.5 GM in SODIUM CHLORIDE 100 ML IVPB SCH ×3 (01:20→17:54)
[2021-06-24] MEDS: INSULIN SLIDING SCALE (NOVOLOG) 1 VIAL SQ SCH ×3 (06:38→17:34)
[2021-06-24] MEDS: MULTIVITAMINS THER W-MINERALS COMBO TABLET (FP) PO SCH (09:26)
[2021-06-24] MEDS: LISINOPRIL 20 MG TABLET PO SCH (09:26)
[2021-06-24] MEDS: POLYETHYLENE GLYCOL (HEALTHYLAX) 3350 17 GM PACKET PO SCH (09:27)
[2021-06-24] MEDS: ENOXAPARIN NA (PORCINE) 40 MG/0.4 ML DISP.SYRIN SQ SCH (10:50)
[2021-06-24 11:25] VITALS: BP 164/83; PULSE 73; TEMP 98
[2021-06-24 11:59] LABS: BASO % 1.7 % (0-2.0); EOS % 3.4 % (0-4.5); HEMOGLOBIN 11.4 GM/dL (11.7-16.9); LYMPH % 23.5 % (8-40); MCH 30.1 pg (25.7-33.7); MCHC 34.7 g/dl (32.0-35.9); MEAN PLT VOLUME 7.3 fl (7.5-11.1); MONO % 5.2 % (3.8-10.2); NEUT % 66.2 % (42.8-82.8); PLATELET COUNT 270 10^3/uL (134-434); RBC 3.79 M/mm3 (4.00-5.60); RDW 13.9 % (11.9-15.9); WHITE BLOOD COUNT 5.3 K/mm3 (4.0-10.0)
[2021-06-24 12:34] LABS: BLOOD UREA NITROGEN 8.8 mg/dL (7-18)
[2021-06-24 12:37] LABS: CREATININE 0.9 mg/dL (0.55-1.3)
[2021-06-24] MEDS ORDERED: amLODIPine BESYLATE 5 MG TABLET (FP) PO ONE (16:55)
[2021-06-25] MEDS ORDERED: amLODIPine BESYLATE 5 MG TABLET (FP) PO SCH (10:00)
== END 2021-06-24 20:30 | disposition home or self-care (01) | DRG 264 ==
LOC: FER 01:15 → J6S 04:04
PROVIDERS: ADMIT Internal Medicine; ATTEND Internal Medicine
PROC: 0KBW0ZZ Excision of Left Foot Muscle, Open Approach (ICD-10-PCS; 2021-06-12 16:00)
PROC: 0JBR0ZZ Excision of Left Foot Subcutaneous Tissue and Fascia, Open Approach (ICD-10-PCS; principal; 2021-06-18 07:30)
PROC: 02HV33Z Insertion of Infusion Device into Superior Vena Cava, Percutaneous Approach (ICD-10-PCS; 2021-06-24)
PROC: B518ZZA Fluoroscopy of Superior Vena Cava, Guidance (ICD-10-PCS; 2021-06-24)
DX: E11.52 Type 2 diabetes mellitus with diabetic peripheral angiopathy with gangrene (principal); U07.1 COVID-19; A48.0 Gas gangrene; A41.9 Sepsis, unspecified organism; L03.116 Cellulitis of left lower limb; E11.42 Type 2 diabetes mellitus with diabetic polyneuropathy; F10.10 Alcohol abuse, uncomplicated; E11.65 Type 2 diabetes mellitus with hyperglycemia; E66.01 Morbid (severe) obesity due to excess calories; Z68.36 Body mass index [BMI] 36.0-36.9, adult; D64.9 Anemia, unspecified
CPT/HCPCS: 36415; 36569; 71045-TC-FY; 73630-TC-LT; 73700-TC-RT; 77001-TC-FY; 80048; 80053; 82728; 82962; 83036; 83605; 83735; 84100; 85025; 85027; 85379; 85610; 85651; 85730; 86850; 86900; 86901; 87040; 87070; 87077; 87186; 87205; 88304-TC; 93005; 93306-TC; 94760; 99285-25; C1751; C9803; G0480; J0131; U0003; U0005

== ENCOUNTER 2023-12-27 23:14 | Emergency (ER) | payer BC ==
[2023-12-27 23:24] VITALS: BP 133/76; PULSE 86; RESP 16; TEMP 97.6; BMI 36.8
== END 2023-12-28 00:59 | disposition home or self-care (01) ==
LOC: FER 23:14
DX: S61.011A Laceration without foreign body of right thumb without damage to nail, initial encounter (principal); W26.0XXA Contact with knife, initial encounter
CPT/HCPCS: 99283-25